=== PATIENT | male | born 2000 | race African-American/Black ===

== ENCOUNTER 2022-05-27 11:37 | Emergency (ER) | payer MEDICAID ==
[~2022-05-27] VITALS: Ht 182.9 cm; Wt 74.0 kg
[2022-05-27 11:47] VITALS: BP 144/84
[2022-05-27] MEDS ORDERED: PREDNISONE 20MG TABLET PO STA (13:16)
[2022-05-27] MEDS ORDERED: ALBUTEROL (0.083%) 2.5MG/3ML NEB HHN STA (13:16)
[2022-05-27] MEDS ORDERED: IPRATROPIUM BROMIDE (0.02%) 0.5MG/2.5ML NEB HHN STA (13:16)
[2022-05-27] MEDS ORDERED: ALBU6.7H3 INH (14:30)
[2022-05-27] MEDS ORDERED: AMOX-494 MT (14:30)
[2022-05-27] MEDS ORDERED: P50 MT (14:30)
[2022-05-27] MEDS ORDERED: BENZ100C86 MT (14:30)
== END 2022-05-27 14:56 | disposition home or self-care (01) ==
LOC: ER 11:37
DX: J18.9 Pneumonia, unspecified organism (principal); J45.909 Unspecified asthma, uncomplicated; Z20.822 Contact with and (suspected) exposure to COVID-19
CPT/HCPCS: 71045; 87426; 87804; 94640; 99284; C9803; J7512; Z7610